=== PATIENT | female | born 1960 | race Caucasian/White ===

== ENCOUNTER → 2023-08-13 16:16 | Outpatient (REF) | payer BC, SELFPAY | LOC: RAD 16:16 | PROVIDERS: ATTENDING PHYSICIAN Emergency Medicine | DX: R14.0 Abdominal distension (gaseous) (principal); R10.84 Generalized abdominal pain; R10.30 Lower abdominal pain, unspecified | CPT/HCPCS: 76700; 76830; 76856 ==

== ENCOUNTER → 2024-10-14 07:34 | Outpatient (REF) | payer BC, SELFPAY ==
[2024-10-14 09:18] LABS: % Basophils 0.6 % (0-2); % Eosinophils 1.8 % (0-6); % Immature Granulocytes 0.2 % (0-0.5); % Lymphocytes 40.8 % (20.5-51.1); % Monocytes 8.8 % (1.7-9.3); % Neutrophils 47.8 % (42.2-75.2); Absolute Eosinophils 0.1 10^3/uL (0-0.7); Absolute Monocytes 0.4 10^3/uL (0.1-0.6); Absolute Neutrophils 2.3 10^3/uL (1.4-6.5); Hemoglobin 13.9 g/dL (12.0-16.0); Mean Corp Hgb Conc. 33.9 g/dL (33.0-37.0); Mean Corpuscular Hgb 30.7 pg (27.0-31.0); Mean Corpuscular Volume 90.5 fL (81.0-99.0); Mean Platelet Volume 10.8 fL (7.4-10.4); Nucleated Red Blood Cells % 0 %; Platelet Count 182 10^3/uL (130-400); Red Blood Cell Count 4.53 10^6/uL (4.20-5.40); Red Cell Dist. Width 12.2 % (11.5-14.5); White Blood Cell Count 4.9 10^3/uL (4.8-10.8)
[2024-10-14 09:28] LABS: Urine Albumin Negative (Neg - Trace); Urine Bilirubin Negative (Negative); Urine Character Clear (Clear); Urine Color Yellow; Urine Glucose Negative (Negative); Urine Ketone Negative (Negative); Urine Leukocyte Negative (Negative); Urine Nitrite Negative (Negative); Urine Occult Blood 1+ (Negative); Urine Urobilinogen Negative (Neg - 1+)
[2024-10-14 09:37] LABS: ALT (SGPT) < 10 U/L (0-35); AST (SGOT) 28 U/L (14-36); Albumin 3.8 g/dl (3.5-5.0); Alkaline Phosphatase 69 U/L (38-126); Blood Urea Nitrogen 18 mg/dl (7-17); Calcium 9.6 mg/dl (8.4-10.2); Carbon Dioxide 30 mmol/L (22-30); Chloride 107 mmol/L (98-107); Glucose 88 mg/dl (70-99); HDL Cholesterol 73 mg/dl; LDL Cholesterol, Calculated 111 mg/dl; Potassium 4.7 mmol/L (3.5-5.1); Sodium 142 mmol/L (135-145); Total Bilirubin 0.5 mg/dl (0.2-1.3); Total Cholesterol 201 mg/dl (50-199); Total Protein 6.7 g/dl (6.3-8.2); Triglyceride 85 mg/dl (10-149); Very Low Density Lipoprotein 17 mg/dl (0-30); eGFR > 60.00
== END ==
LOC: REG 07:34
PROVIDERS: ATTENDING PHYSICIAN Nurse Practitioner Family; FAMILY PHYSICIAN Emergency Medicine
DX: Z13.0 Encounter for screening for diseases of the blood and blood-forming organs and certain disorders involving the immune mechanism (principal); Z13.1 Encounter for screening for diabetes mellitus; E78.00 Pure hypercholesterolemia, unspecified; Z13.89 Encounter for screening for other disorder
CPT/HCPCS: 36415; 80053; 80061; 81003; 81015; 85025

== ENCOUNTER → 2025-04-28 07:55 | Outpatient (REF) | payer BC, SELFPAY ==
[2025-04-28 09:08] LABS: Hematocrit 41.8 % (37.0-47.0); Hemoglobin 14.0 g/dL (12.0-16.0); Mean Corp Hgb Conc. 33.5 g/dL (33.0-37.0); Mean Corpuscular Volume 92.7 fL (81.0-99.0); Nucleated Red Blood Cells % 0 %; Platelet Count 232 10^3/uL (130-400); Red Cell Dist. Width 12.0 % (11.5-14.5)
[2025-04-28 09:30] LABS: ALT (SGPT) 10 U/L (0-35); AST (SGOT) 28 U/L (14-36); Albumin 4.0 g/dl (3.5-5.0); Alkaline Phosphatase 65 U/L (38-126); Blood Urea Nitrogen 18 mg/dl (7-17); Calcium 9.4 mg/dl (8.4-10.2); Carbon Dioxide 29 mmol/L (22-30); Chloride 108 mmol/L (98-107); Glucose 93 mg/dl (70-99); Magnesium 1.9 mg/dl (1.6-2.3); Potassium 4.6 mmol/L (3.5-5.1); Sodium 140 mmol/L (135-145); Total Protein 7.1 g/dl (6.3-8.2); Uric Acid 4.3 mg/dl (2.5-6.2); eGFR > 60.00
[2025-04-28 09:58] LABS: TSH 0.68 uIU/ml (0.47-4.68)
[2025-04-28 10:18] LABS: Vitamin B12 501 pg/ml (239-931)
[2025-04-28 10:32] LABS: Glycohemoglobin (HgbA1c) 5.3 % (4.0-5.6)
[2025-04-30 19:03] LABS: Lipoprotein a (Lp a) 26 mg/dL (<=29)
== END ==
LOC: REG 07:55
PROVIDERS: ATTENDING PHYSICIAN Internal Medicine
DX: E78.00 Pure hypercholesterolemia, unspecified (principal); E66.09 Other obesity due to excess calories; Z13.1 Encounter for screening for diabetes mellitus; M19.90 Unspecified osteoarthritis, unspecified site; G47.09 Other insomnia
CPT/HCPCS: 36415; 80053; 82607; 83036; 83525; 83695; 83735; 84439; 84443; 84550; 85025

== ENCOUNTER → 2025-05-05 07:35 | Outpatient (REF) | payer BC, SELFPAY | LOC: HWLAB 07:35 | PROVIDERS: ATTENDING PHYSICIAN Internal Medicine; FAMILY PHYSICIAN Emergency Medicine | DX: E78.00 Pure hypercholesterolemia, unspecified (principal); E66.09 Other obesity due to excess calories; Z13.1 Encounter for screening for diabetes mellitus; M19.90 Unspecified osteoarthritis, unspecified site; G47.09 Other insomnia | CPT/HCPCS: 36415; 80061; 83704 ==